=== PATIENT | female | born 1995 | race Caucasian/White ===

== ENCOUNTER 2019-01-16 18:15 | Outpatient (CLI) | payer BC ==
[~2019-01-16] VITALS: Ht 165.1 cm; Wt 72.7 kg
[~2019-01-16 18:15] MED LIST: IBUP-1222 PO; OXYC-302 PO; PREN1TAB60 PO
[2019-01-16 18:43] VITALS: BP 126/72
[2019-01-16 19:55] LABS: MICROSCOPIC INDICATED
== END 2019-01-16 20:20 | disposition home or self-care (01) ==
LOC: LDOP 18:15
PROVIDERS: ATTEND Obstetrics & Gynecology Maternal & Fetal Medicine
DX: O62.4 Hypertonic, incoordinate, and prolonged uterine contractions (principal); Z3A.27 27 weeks gestation of pregnancy
CPT/HCPCS: 59025; 81001; 87086; 99211; G0463

== ENCOUNTER 2019-02-22 00:53 | Inpatient (IN) | payer BC ==
[~2019-02-22] VITALS: Ht 165.1 cm; Wt 76.9 kg
[2019-02-22 01:20] LABS: MICROSCOPIC NOT IND
[2019-02-22] MEDS ORDERED: D5%-LACTATED RINGERS 1,000 ML IV SCH (01:30)
[2019-02-22] MEDS ORDERED: MAGNESIUM SULF. PMX 20GM/500ML 500 ML IV ONE ×4 (02:56→20:43)
[2019-02-22] MEDS ORDERED: CALCIUM GLUCONATE 4.6 MEQ/10 ML IV PRN (03:00)
[2019-02-22] MEDS ORDERED: MAGNESIUM SULFATE PMX 4GM/100M 100 ML IVPB ONE (03:00)
[2019-02-22] MEDS ORDERED: BETAMETHASONE 6 MG/ML, 5ML IM ONE (03:35)
[2019-02-22] MEDS: BETAMETHASONE 6 MG/ML, 5ML IM SCH (03:41)
[2019-02-22] MEDS: MAGNESIUM SULF. PMX 20GM/500ML 500 ML IV SCH ×4 (03:49→20:48)
[2019-02-22 04:00] LABS: ALANINE AMINOTRANSFERASE 27 U/L (12-78); ALBUMIN 2.7 g/dL (3.4-5.0); ANION GAP 8 mmol/L (5-15); CALCIUM 8.4 mg/dL (8.5-10.1); CHLORIDE 111 mmol/L (98-107); CREATININE 0.63 mg/dL (0.55-1.02)
[2019-02-22 04:02] LABS: BASOPHILS # (AUTO) 0.03 x10^3/uL (0-0.1); BASOPHILS % (AUTO) 0 % (0-1); EOSINOPHILS % (AUTO) 3 % (1-7); LYMPHOCYTES # (AUTO) 1.65 x10^3/uL (1-3.4); LYMPHOCYTES % (AUTO) 16 % (22-44); MD NO; MEAN CORPUSCULAR HEMOGLOBIN 30.1 pg (27.0-34.8); MEAN CORPUSCULAR HGB CONC 32.9 g/dL (32.4-35.8); MEAN CORPUSCULAR VOLUME 91.6 fL (80-100); MEAN PLATELET VOLUME 7.9 fL (7.4-10.4); MONOCYTES # (AUTO) 0.81 x10^3/uL (0.2-0.8); MONOCYTES % (AUTO) 8 % (2-9); NEUTROPHILS # (AUTO) 7.78 x10^3/uL (1.8-6.8); NEUTROPHILS % (AUTO) 74 % (42-75); PLATELET COUNT 192 x10^3/uL (130-400); RED BLOOD COUNT 4.27 x10^6/uL (3.82-5.3); RED CELL DISTRIBUTION WIDTH 13.1 % (9.6-15.2)
[2019-02-22 04:03] LABS: ALKALINE PHOSPHATASE 142 U/L (45-117); BILIRUBIN,TOTAL 0.5 mg/dL (0.2-1.0); TOTAL PROTEIN 6.3 g/dL (6.4-8.2)
[2019-02-22 07:59] VITALS: BP 131/76
[2019-02-22] MEDS: PRENATAL VIT/IRON/FA 1 EACH TABLET PO SCH (09:00)
[2019-02-22] MEDS: DOCUSATE 100 MG CAPSULE PO SCH (09:00)
[2019-02-22] MEDS ORDERED: DIPHENHYDRAMINE 25 MG CAPSULE PO PRN (20:30)
[2019-02-22 20:49] VITALS: BP 127/71
[2019-02-22 20:50] VITALS: BP 127/71
[2019-02-22] MEDS ORDERED: DIPHENHYDRAMINE 25 MG CAPSULE ONE (21:54)
[2019-02-23] MEDS ORDERED: MAGNESIUM SULF. PMX 20GM/500ML 500 ML IV ONE ×3 (03:42→17:41)
[2019-02-23] MEDS: MAGNESIUM SULF. PMX 20GM/500ML 500 ML IV SCH ×3 (03:46→17:44)
[2019-02-23] MEDS: BETAMETHASONE 6 MG/ML, 5ML IM SCH (03:48)
[2019-02-23] MEDS ORDERED: LACTATED RINGERS 1,000 ML IV SCH (07:30)
[2019-02-23] MEDS: DOCUSATE 100 MG CAPSULE PO SCH (07:57)
[2019-02-23 08:03] VITALS: BP 122/66
[2019-02-23] MEDS ORDERED: PRENATAL VIT/IRON/FA 1 EACH TABLET ONE (08:27)
[2019-02-23] MEDS: PRENATAL VIT/IRON/FA 1 EACH TABLET PO SCH (09:38)
[2019-02-24] MEDS ORDERED: PRENATAL VIT/IRON/FA 1 EACH TABLET ONE (10:07)
[2019-02-24] MEDS ORDERED: DOCUSATE 100 MG CAPSULE ONE (10:08)
[2019-02-24] MEDS: PRENATAL VIT/IRON/FA 1 EACH TABLET PO SCH (10:09)
[2019-02-24] MEDS: DOCUSATE 100 MG CAPSULE PO SCH (10:09)
[2019-02-24] MEDS: SODIUM CHLORIDE FLUSH 3ML SYRINGE IVF SCH (10:11)
[2019-02-24] MEDS: D5%-LACTATED RINGERS 1,000 ML IV SCH (21:30)
[2019-02-25] MEDS: D5%-LACTATED RINGERS 1,000 ML IV SCH (04:16)
[2019-02-25] MEDS: DOCUSATE 100 MG CAPSULE PO SCH (09:00)
[2019-02-25] MEDS: SODIUM CHLORIDE FLUSH 3ML SYRINGE IVF SCH ×2 (09:00→19:49)
[2019-02-25 19:47] VITALS: BP 131/63
[2019-02-25] MEDS ORDERED: PRENATAL VIT/IRON/FA 1 EACH TABLET ONE (19:52)
[2019-02-25] MEDS: PRENATAL VIT/IRON/FA 1 EACH TABLET PO SCH (19:54)
[2019-02-26] MEDS: DOCUSATE 100 MG CAPSULE PO SCH (09:00)
[2019-02-26] MEDS ORDERED: DOCUSATE 100 MG CAPSULE ONE (09:34)
[2019-02-26] MEDS ORDERED: PRENATAL VIT/IRON/FA 1 EACH TABLET ONE (09:34)
[2019-02-26] MEDS: PRENATAL VIT/IRON/FA 1 EACH TABLET PO SCH (10:04)
[2019-02-26 12:13] VITALS: BP 134/76
[2019-02-27] MEDS ORDERED: DOCUSATE 100 MG CAPSULE ONE (07:13)
[2019-02-27] MEDS ORDERED: PRENATAL VIT/IRON/FA 1 EACH TABLET ONE (07:14)
[2019-02-27] MEDS: DOCUSATE 100 MG CAPSULE PO SCH (09:00)
[2019-02-27] MEDS: PRENATAL VIT/IRON/FA 1 EACH TABLET PO SCH (09:42)
[2019-02-27 09:57] VITALS: BP 135/78
[2019-02-27 19:52] VITALS: BP 131/72
[2019-02-27] MEDS ORDERED: FENTANYL/BUPIV./NS/PF 250 ML EPIDCONT SCH (22:37)
[2019-02-27 22:46] LABS: MEAN CORPUSCULAR HEMOGLOBIN 29.6 pg (27.0-34.8); MEAN CORPUSCULAR HGB CONC 33.2 g/dL (32.4-35.8); MEAN CORPUSCULAR VOLUME 89.3 fL (80-100); MEAN PLATELET VOLUME 7.9 fL (7.4-10.4); PLATELET COUNT 206 x10^3/uL (130-400); RED BLOOD COUNT 4.59 x10^6/uL (3.82-5.3); RED CELL DISTRIBUTION WIDTH 13.6 % (9.6-15.2)
[2019-02-27] MEDS ORDERED: FENTANYL/BUPIV./NS/PF 0 ML EPIDCONT ONE (22:53)
[2019-02-27] MEDS ORDERED: NALOXONE 0.4 MG/ML, 1ML IVPush PRN (23:00)
[2019-02-27] MEDS ORDERED: AZITHROMYCIN 500 MG in SODIUM CHLORIDE 0.9% 250 ML IV ONE (23:00)
[2019-02-27] MEDS ORDERED: EPHEDRINE 50 MG/ML, 1ML IVPush PRN (23:00)
[2019-02-27] MEDS ORDERED: METOCLOPRAMIDE 5 MG/ML, 2ML ONE (23:00)
[2019-02-27] MEDS ORDERED: LACTATED RINGERS 1,000 ML IVBOLUS PRN (23:00)
[2019-02-27] MEDS ORDERED: SODIUM CITRATE/CITRIC ACID 30 ML UDC ONE (23:01)
[2019-02-27] MEDS ORDERED: OXYTOCIN 10 UNITS/ML, 1ML ONE (23:05)
[2019-02-27] MEDS ORDERED: EPINEPHRINE 1 MG/ML, 1ML ONE (23:05)
[2019-02-27] MEDS: LACTATED RINGERS 1,000 ML IV SCH (23:05)
[2019-02-27] MEDS ORDERED: EPHEDRINE 50 MG/ML, 1ML ONE (23:05)
[2019-02-27] MEDS ORDERED: FENTANYL PF 100 MCG/2ML ONE (23:05)
[2019-02-27] MEDS ORDERED: CEFAZOLIN 1,000 MG ONE (23:05)
[2019-02-27 23:12] LABS: MD YES
[2019-02-27 23:14] LABS: EOS#(MANUAL) 0.24 x10^3/uL (0.0-0.4); EOS% (MANUAL) 2 % (1-7); LYMPH#(MANUAL) 3.45 x10^3/uL (1-3.4); LYMPHS% (MANUAL) 29 % (22-44); MONOS% (MANUAL) 5 % (2-9); MYELOCYTES% (MANUAL) 5 % (0-0); SEG#(MANUAL) 7.02 x10^3/uL (1.8-6.8); SEGS% (MANUAL) 59 % (42-75)
[2019-02-27 23:15] LABS: ANISOCYTOSIS 1+; POLYCHROMASIA 1+
[2019-02-27 23:16] LABS: <PLATELET ESTIMATE> ADEQUATE; <PLT MORPHOLOGY> NORMAL PLT MORPH
[2019-02-27] MEDS ORDERED: METOCLOPRAMIDE 5 MG/ML, 2ML IV ONE (23:30)
[2019-02-27] MEDS ORDERED: SODIUM CITRATE/CITRIC ACID 30 ML UDC PO ONE (23:30)
[2019-02-28] MEDS ORDERED: FENTANYL PF 100 MCG/2ML ONE ×3 (00:06→01:59)
[2019-02-28] MEDS ORDERED: OXYTOCIN 10 UNITS/ML, 1ML ONE ×2 (00:48)
[2019-02-28] MEDS ORDERED: LACTATED RINGERS 1,000 ML IV SCH (00:54)
[2019-02-28] MEDS ORDERED: NEWBORN KIT ONE (00:54)
[2019-02-28] MEDS ORDERED: METHYLERGONOVINE 0.2 MG/ML IM PRN (01:00)
[2019-02-28] MEDS ORDERED: CARBOPROST TROMETHAMINE 250 MCG/ML, 1ML IM PRN (01:00)
[2019-02-28] MEDS ORDERED: IBUPROFEN 600 MG TABLET PO PRN (01:00)
[2019-02-28] MEDS ORDERED: DOCUSATE 100 MG CAPSULE PO PRN (01:00)
[2019-02-28] MEDS ORDERED: SIMETHICONE 80 MG CHEW TAB PO PRN (01:00)
[2019-02-28] MEDS ORDERED: OXYcodone/APAP 5/325MG TABLET PO PRN (01:00)
[2019-02-28] MEDS ORDERED: ONDANSETRON 2MG/ML, 2ML IV PRN (01:00)
[2019-02-28] MEDS ORDERED: MISOPROSTOL 200 MCG TABLET PR PRN (01:00)
[2019-02-28] MEDS ORDERED: MEPERIDINE/PF 50 MG/ML ONE (01:12)
[2019-02-28] MEDS ORDERED: MORPHINE SULFATE 4 MG/ML, 1ML ONE (01:12)
[2019-02-28] MEDS: FENTANYL PF 100 MCG/2ML IVPush PRN ×2 (01:16→05:00)
[2019-02-28] MEDS: FENTANYL PF 100 MCG/2ML IV PRN ×3 (01:29→05:01)
[2019-02-28] MEDS ORDERED: MORPHINE SULFATE 4 MG/ML, 1ML IVPush PRN (01:30)
[2019-02-28] MEDS ORDERED: OXYTOCIN 30U/ 0.9% NaCL 500ML 500 ML ONE (01:38)
[2019-02-28] MEDS: OXYTOCIN 30U/ 0.9% NaCL 500ML 500 ML IV SCH ×3 (01:41→21:11)
[2019-02-28] MEDS: LACTATED RINGERS 1,000 ML IV SCH ×4 (01:41→21:11)
[2019-02-28] MEDS ORDERED: morphine SULFATE 10 MG/ML, 1ML ONE (02:20)
[2019-02-28] MEDS ORDERED: morphine SULFATE 10 MG/ML, 1ML IVPush PRN (02:30)
[2019-02-28 02:45] VITALS: BP 121/70
[2019-02-28] MEDS: OXYcodone IR 5MG TABLET PO PRN ×5 (03:40→20:46)
[2019-02-28] MEDS: morphine SULFATE 10 MG/ML, 1ML IVPush PRN ×2 (06:10→09:47)
[2019-02-28] MEDS: PRENATAL VIT/IRON/FA 1 EACH TABLET PO SCH ×2 (07:41→09:52)
[2019-02-28] MEDS: DOCUSATE 100 MG CAPSULE PO SCH (07:41)
[2019-02-28 08:05] VITALS: BP 122/77
[2019-02-28 08:29] LABS: MEAN CORPUSCULAR HEMOGLOBIN 29.9 pg (27.0-34.8); MEAN CORPUSCULAR HGB CONC 33.6 g/dL (32.4-35.8); MEAN CORPUSCULAR VOLUME 88.9 fL (80-100); MEAN PLATELET VOLUME 7.8 fL (7.4-10.4); PLATELET COUNT 153 x10^3/uL (130-400); RED BLOOD COUNT 4.02 x10^6/uL (3.82-5.3); RED CELL DISTRIBUTION WIDTH 13.1 % (9.6-15.2)
[2019-02-28 08:41] LABS: BASOPHILS # (AUTO) 0.01 x10^3/uL (0-0.1); BASOPHILS % (AUTO) 0 % (0-1); EOSINOPHILS # (AUTO) 0.12 x10^3/uL (0-0.4); EOSINOPHILS % (AUTO) 1 % (1-7); LYMPHOCYTES # (AUTO) 1.65 x10^3/uL (1-3.4); LYMPHOCYTES % (AUTO) 12 % (22-44); MD SCAN; MONOCYTES # (AUTO) 0.96 x10^3/uL (0.2-0.8); MONOCYTES % (AUTO) 7 % (2-9); NEUTROPHILS % (AUTO) 81 % (42-75)
[2019-02-28 12:15] VITALS: BP 118/74
[2019-02-28] MEDS: KETOROLAC 30 MG/1 ML IVPush SCH ×2 (14:06→20:05)
[2019-02-28 16:50] VITALS: BP 120/79
[2019-02-28 20:11] VITALS: BP 115/73
[2019-02-28] MEDS ORDERED: METHYLERGONOVINE 0.2 MG/ML IM ONE (23:27)
[2019-02-28] MEDS ORDERED: LIDOCAINE 1%, 20ML ONE (23:27)
[2019-03-01] MEDS: OXYcodone IR 5MG TABLET PO PRN ×5 (00:43→20:08)
[2019-03-01] MEDS: KETOROLAC 30 MG/1 ML IVPush SCH ×4 (02:18→21:05)
[2019-03-01] MEDS: LACTATED RINGERS 1,000 ML IV SCH ×2 (06:03→16:54)
[2019-03-01] MEDS: OXYTOCIN 30U/ 0.9% NaCL 500ML 500 ML IV SCH ×2 (06:03→16:54)
[2019-03-01 08:00] VITALS: BP 115/78
[2019-03-01] MEDS: PRENATAL VIT/IRON/FA 1 EACH TABLET PO SCH ×3 (08:18→09:00)
[2019-03-01] MEDS: DOCUSATE 100 MG CAPSULE PO SCH ×2 (08:18→20:08)
[2019-03-01 19:30] VITALS: BP 129/80
[2019-03-01] MEDS: ACETAMINOPHEN 325 MG TABLET PO PRN (20:07)
[2019-03-02] MEDS: OXYcodone IR 5MG TABLET PO PRN ×3 (00:17→08:08)
[2019-03-02] MEDS: ACETAMINOPHEN 325 MG TABLET PO PRN ×3 (00:17→08:08)
[2019-03-02] MEDS: OXYTOCIN 30U/ 0.9% NaCL 500ML 500 ML IV SCH (02:54)
[2019-03-02] MEDS: LACTATED RINGERS 1,000 ML IV SCH (02:54)
[2019-03-02] MEDS: KETOROLAC 30 MG/1 ML IVPush SCH ×2 (03:07→08:03)
[2019-03-02 08:00] VITALS: BP 135/83
[2019-03-02] MEDS: PRENATAL VIT/IRON/FA 1 EACH TABLET PO SCH ×2 (08:03→08:33)
[2019-03-02] MEDS: DOCUSATE 100 MG CAPSULE PO SCH (08:03)
[2019-03-02] MEDS ORDERED: IBUP-1222 PO (10:50)
[2019-03-02] MEDS ORDERED: DOCU-131 PO (10:50)
[2019-03-02] MEDS ORDERED: OXYC-302 PO (10:51)
== END 2019-03-02 11:13 | disposition home or self-care (01) | DRG 786 ==
LOC: LDOP 00:53 → OBSVTOIN 01:44 → LDIP 01:44 → 2NW 02-28 02:43
PROVIDERS: ADMIT Obstetrics & Gynecology Maternal & Fetal Medicine; ATTEND Obstetrics & Gynecology Maternal & Fetal Medicine
PROC: 10D00Z1 Extraction of Products of Conception, Low, Open Approach (ICD-10-PCS; principal; 2019-02-28)
DX: O32.2XX2 Maternal care for transverse and oblique lie, fetus 2 (principal); O60.14X1 Preterm labor third trimester with preterm delivery third trimester, fetus 1; O60.14X2 Preterm labor third trimester with preterm delivery third trimester, fetus 2; O60.14X0 Preterm labor third trimester with preterm delivery third trimester, not applicable or unspecified; O36.5931 Maternal care for other known or suspected poor fetal growth, third trimester, fetus 1; O30.043 Twin pregnancy, dichorionic/diamniotic, third trimester; Z37.2 Twins, both liveborn; Z3A.33 33 weeks gestation of pregnancy; Z88.2 Allergy status to sulfonamides; Z88.1 Allergy status to other antibiotic agents
CPT/HCPCS: 36415; J3490; J7121; 80053; 81003; 82803; 83735; 85025; 86850; 86900; 87081; 87086; 88307; G0378; J0171; J0456; J0690; J0702; J1885; J3010; J2210; J2270; J2590; J2765; J3475; J7050; J7120; Q0163